=== PATIENT | male | born 1940 | race African-American/Black ===

== ENCOUNTER 2018-05-01 11:14 | Inpatient (IN) | payer OTHER ==
[~2018-05-01] VITALS: Ht 170.2 cm; Wt 68.5 kg
[2018-05-01] MEDS ORDERED: ASPIRIN 81MG TABLET PO ONE (12:15)
[2018-05-01] MEDS ORDERED: DILTIAZEM HCL 5MG/ML 5ML VIAL IV ONE (12:15)
[2018-05-01 12:44] LABS: HEMATOCRIT. 45.6 % (42.0-52.0); HEMOGLOBIN. 15.3 g/dL (14.0-18.0); MEAN CORPUSCULAR HEMOGLOBIN 29.4 pg (28.0-32.0); MEAN CORPUSCULAR VOLUME 87.6 fL (80.0-94.0); RED CELL DISTRIBUTION WIDTH 14.5 % (11.6-14.6)
[2018-05-01 12:50] LABS: CHLORIDE 107 mEq/L (98-107)
[2018-05-01] MEDS ORDERED: SODIUM CHLORIDE 0.9% 500 ML IV ONE (13:00)
[2018-05-01 13:26] LABS: MEAN PLATELET VOLUME 9.8 fl (7.4-10.4)
[2018-05-01 13:27] LABS: PLATELET 17 x1000/uL (130-400); PLATELET ESTIMATE MARKEDLY DECREASED
[2018-05-01] MEDS ORDERED: DILTIAZEM HCL 125 MG in DEXT 5% WATER 100 ML IV ONE (13:30)
[2018-05-01] MEDS ORDERED: DILTIAZEM HCL 125 MG in DEXT 5% WATER 100 ML IV SCH (14:15)
[2018-05-01] MEDS ORDERED: HYDROCODONE/ACETAMINOPHEN 5/325MG TABLET PO PRN (17:45)
[2018-05-01] MEDS ORDERED: ONDANSETRON HCL 4MG/2ML INJ IV PRN (17:45)
[2018-05-01] MEDS ORDERED: ENOXAPARIN 40MG/0.4ML SYR SUBCUT SCH (17:45)
[2018-05-01] MEDS ORDERED: ACETAMINOPHEN 325MG TABLET PO PRN (17:45)
[2018-05-01] MEDS ORDERED: LORAZEPAM 2MG/ML CPJ IV PRN (17:45)
[2018-05-01 18:46] LABS: CLARITY URINE CLOUDY (CLEAR); COLOR URINE YELLOW (YELLOW); KETONES URINE NEGATIVE (NEGATIVE); LEUKOCYTE ESTERASE URINE TRACE (NEGATIVE); NITRITE URINE NEGATIVE (NEGATIVE); OCCULT BLOOD URINE 2+ (NEGATIVE); PROTEIN URINE 1+ (NEGATIVE); SPECIFIC GRAVITY URINE 1.018 (1.005-1.030)
[2018-05-01 19:09] LABS: *AMPHETAMINES SCREEN URINE NEGATIVE (NEGATIVE); *BARBITURATES SCREEN URINE NEGATIVE (NEGATIVE); *BENZODIAZEPINES SCREEN URINE NEGATIVE (NEGATIVE); *COCAINE SCREEN URINE NEGATIVE (NEGATIVE)
[2018-05-01 19:10] LABS: CANNABINOID URINE SCREEN NEGATIVE (NEGATIVE); METHADONE URINE SCREEN NEGATIVE (NEGATIVE); OPIATES URINE SCREEN NEGATIVE (NEGATIVE); PHENCYCLIDINE URINE SCREEN NEGATIVE (NEGATIVE)
[2018-05-01 21:07] LABS: BG BASE EXCESS -2.1 mmol/L (-2.0-2.0); BG BILEVEL POS AIRWAY PRESSURE 15/5; BG CARBOXYHEMOGLOBIN 0.3 % (0.5-1.5); BG DEOXYHEMOGLOBIN 0.7 % (0.0-5.0); BG FRACTION INSPIRED OXYGEN 100; BG HCO3 ACT 19.3 mmol/L (22.0-26.0); BG METHEMOGLOBIN 0.4 % (0.0-1.5); BG OXYGEN SATURATION 99.3 % (92.0-98.5); BG OXYHEMOGLOBIN 98.6 % (94.0-97.0); BG PCO2 25.3 mmHg (35.0-45.0); BG PH 7.501 (7.350-7.450); BG SAMPLE SITE RIGHT RADIAL; BG TOTAL HEMOGLOBIN 14.1 g/dL (12.0-18.0); BG VENT MODE MASK - BIPAP; BG VENT RATE 18 set
[2018-05-01] MEDS: SODIUM CHLORIDE 0.9% 1,000 ML IV SCH (23:00)
[2018-05-01] MEDS: THIAMINE HCL 100MG TABLET PO SCH (23:00)
[2018-05-02] VITALS (30 sets, daily range): BP systolic 78–134; BP diastolic 39–79
[2018-05-02] MEDS: SODIUM CHLORIDE 0.9% 1,000 ML IV SCH ×2 (08:46→18:06)
[2018-05-02] MEDS: THIAMINE HCL 100MG TABLET PO SCH (08:47)
[2018-05-02] MEDS: FOLIC ACID 1MG TABLET PO SCH (08:47)
[2018-05-02] MEDS ORDERED: DILTIAZEM HCL 5MG/ML 5ML VIAL IV ONE (12:20)
[2018-05-02] MEDS ORDERED: AMIODARONE HCL 900 MG in DEXT 5% WATER 482 ML IV SCH (12:30)
[2018-05-02] MEDS ORDERED: AMIODARONE HCL 150 MG in DEXT 5% WATER 100 ML IV SCH (12:30)
[2018-05-02] MEDS ORDERED: IPRATROPIUM BROMIDE (0.02%) 0.5MG/2.5ML NEB HHN NR (12:45)
[2018-05-02] MEDS ORDERED: IPRATROPIUM BROMIDE (0.02%) 0.5MG/2.5ML NEB HHN PRN (13:15)
[2018-05-02 13:58] LABS: BG BASE EXCESS -3.6 mmol/L (-2.0-2.0); BG CARBOXYHEMOGLOBIN 0.7 % (0.5-1.5); BG DEOXYHEMOGLOBIN 3.4 % (0.0-5.0); BG FRACTION INSPIRED OXYGEN 28; BG HCO3 ACT 16.9 mmol/L (22.0-26.0); BG METHEMOGLOBIN 0.5 % (0.0-1.5); BG OXYGEN SATURATION 96.6 % (92.0-98.5); BG OXYHEMOGLOBIN 95.4 % (94.0-97.0); BG PCO2 20.9 mmHg (35.0-45.0); BG PH 7.526 (7.350-7.450); BG PO2 81.4 mmHg (75.0-100.0); BG SAMPLE SITE RIGHT RADIAL; BG TOTAL HEMOGLOBIN 13.6 g/dL (12.0-18.0); BG VENT MODE NASAL CANNULA
[2018-05-02] MEDS ORDERED: SODIUM CHLORIDE 0.9% 500 ML IV ONE (14:30)
[2018-05-02 15:39] LABS: HEMATOCRIT. 36.9 % (42.0-52.0); HEMOGLOBIN. 12.3 g/dL (14.0-18.0); MEAN CORPUSCULAR HEMOGLOBIN 29.4 pg (28.0-32.0); MEAN CORPUSCULAR VOLUME 87.8 fL (80.0-94.0); MEAN PLATELET VOLUME 9.5 fl (7.4-10.4); RED CELL DISTRIBUTION WIDTH 14.4 % (11.6-14.6)
[2018-05-02 15:41] LABS: CHLORIDE 109 mEq/L (98-107)
[2018-05-02 15:43] LABS: PLATELET 13 x1000/uL (130-400)
[2018-05-02] MEDS: IPRATROPIUM BROMIDE (0.02%) 0.5MG/2.5ML NEB HHN SCH ×2 (15:46→20:16)
[2018-05-02 15:47] LABS: INR 1.3; PHOSPHORUS 1.9 mg/dL (2.5-4.9); PROTHROMBIN TIME 13.2 sec (9.1-11.1)
[2018-05-02 15:52] LABS: CREATINE KINASE MB FRACTION 1.1 ng/mL (0.5-3.6)
[2018-05-02] MEDS ORDERED: DIATR MEGLU/DIATRIZOATE SOLN 30ML PO NR (16:00)
[2018-05-02] MEDS ORDERED: LEVOFLOXACIN 500MG PREMIX 100 ML IV SCH (16:00)
[2018-05-02 16:13] LABS: PLATELET ESTIMATE MARKEDLY DECREASED
[2018-05-02] MEDS ORDERED: VANCOMYCIN 1500MG in DEXTROSE 5% WATER 250ML IV NR (17:00)
[2018-05-02] MEDS ORDERED: POTASSIUM PHOS,M-BASIC-D-BASIC 30 MMOL in DEXT 5% WATER 500 ML IV NR (18:00)
[2018-05-02] MEDS: MEROPENEM 500 MG in SODIUM CHLORIDE 0.9% 50 ML IV SCH (20:42)
[2018-05-02] MEDS ORDERED: METRONIDAZOLE 500 MG PREMIX 100 ML IV SCH ×4 (22:00)
[2018-05-03] VITALS (24 sets, daily range): BP systolic 102–145; BP diastolic 62–96
[2018-05-03] MEDS: IPRATROPIUM BROMIDE (0.02%) 0.5MG/2.5ML NEB HHN SCH ×5 (00:19→16:55)
[2018-05-03 05:28] LABS: HEMATOCRIT. 36.3 % (42.0-52.0); HEMOGLOBIN. 12.2 g/dL (14.0-18.0); MEAN CORPUSCULAR HEMOGLOBIN 29.2 pg (28.0-32.0); MEAN CORPUSCULAR VOLUME 86.6 fL (80.0-94.0); MEAN PLATELET VOLUME 8.2 fl (7.4-10.4); RED BLOOD CELL COUNT 4.19 mill/uL (4.7-6.1); RED CELL DISTRIBUTION WIDTH 14.5 % (11.6-14.6)
[2018-05-03] MEDS: FOLIC ACID 1MG TABLET PO SCH (08:20)
[2018-05-03] MEDS: THIAMINE HCL 100MG TABLET PO SCH (08:20)
[2018-05-03] MEDS: MEROPENEM 500 MG in SODIUM CHLORIDE 0.9% 50 ML IV SCH (08:20)
[2018-05-03] MEDS: SODIUM CHLORIDE 0.9% 1,000 ML IV SCH ×2 (08:27→15:45)
[2018-05-03] MEDS: DILTIAZEM HCL 30MG TABLET PO SCH ×2 (11:54→17:58)
[2018-05-03] MEDS ORDERED: KCL 20MEQ/100ML PREMIX 100 ML IV NR (12:00)
[2018-05-03 13:06] LABS: A/G RATIO 0.7 (0.7-1.7); ALBUMIN 2.4 g/dL (2.9-4.4); ALPHA-1-GLOBULIN 0.4 g/dL (0.0-0.4); ALPHA-2-GLOBULIN 0.8 g/dL (0.4-1.0); BETA GLOBULIN 0.9 g/dL (0.7-1.3); GAMMA GLOBULINS 1.5 g/dL (0.4-1.8); GLOBULIN TOTAL 3.6 g/dL (2.2-3.9); M-SPIKE Not Observed g/dL (Not Observed)
[2018-05-03 15:10] LABS: ALBUMIN URINE 22.5 % (.); ALPHA-1-GLOBULIN URINE 1.7 % (.); ALPHA-2-GLOBULIN URINE 12.9 % (.); BETA GLOBULIN URINE 30.1 % (.); GAMMA GLOBULIN URINE 32.8 % (.); TOTAL PROTEIN RANDOM URINE 44.7 mg/dL (Not Estab.)
[2018-05-03 20:28] LABS: PLATELET ESTIMATE MARKEDLY DECREASED
[2018-05-03 20:29] LABS: PLATELET 49 x1000/uL (130-400)
[2018-05-07 04:11] LABS: DRVVT LA 46.5 sec (0.0-47.0); LUPUS ANTICOAG INTERPRETATION Comment: (.); PTT-LA 38.3 sec (0.0-51.9)
== END 2018-05-03 19:30 | disposition short-term general hospital (02) | DRG 871 ==
LOC: ER 11:14 → EDBEDREQ 12:07 → 5EST 15:23 → EDBEDREQ 15:27 → EDBEDREQSVC 15:29 → ENRESERV 20:15 → CVICU 05-02 13:30
PROVIDERS: ADMIT Internal Medicine Nephrology; ATTEND Internal Medicine Nephrology
PROC: 5A09357 Assistance with Respiratory Ventilation, Less than 24 Consecutive Hours, Continuous Positive Airway Pressure (ICD-10-PCS; 2018-05-01)
PROC: 30233R1 Transfusion of Nonautologous Platelets into Peripheral Vein, Percutaneous Approach (ICD-10-PCS; principal; 2018-05-03)
DX: A41.51 Sepsis due to Escherichia coli [E. coli] (principal); R65.21 Severe sepsis with septic shock; J96.00 Acute respiratory failure, unspecified whether with hypoxia or hypercapnia; E43 Unspecified severe protein-calorie malnutrition; N17.9 Acute kidney failure, unspecified; E87.2 Acidosis; I47.1 Supraventricular tachycardia; D69.3 Immune thrombocytopenic purpura; N13.6 Pyonephrosis; I69.351 Hemiplegia and hemiparesis following cerebral infarction affecting right dominant side; I48.0 Paroxysmal atrial fibrillation; N18.9 Chronic kidney disease, unspecified; E87.6 Hypokalemia; J44.9 Chronic obstructive pulmonary disease, unspecified; E83.39 Other disorders of phosphorus metabolism; E83.42 Hypomagnesemia; E86.1 Hypovolemia; I12.9 Hypertensive chronic kidney disease with stage 1 through stage 4 chronic kidney disease, or unspecified chronic kidney disease; Z87.891 Personal history of nicotine dependence; Z68.23 Body mass index [BMI] 23.0-23.9, adult
CPT/HCPCS: 36415; 36600; 71045; 74176; 76700; 76770; 78580; 80048; 80305; 82140; 82375; 82553; 82805; 83605; 83735; 83880; 84100; 84155; 84156; 84165; 84166; 84443; 84484; 84520; 85049; 85384; 85613; 85732; 86038; 86850; 86900; 87077; 87186; 93005; 93306; 94660; 96361; 96365; 96375; 99291; J0282; J1956; J2185; J2405; J3370; J3480; J3490; J7040; J7050; J7060; P9034; Q9963; A4315

== ENCOUNTER 2019-02-01 11:48 | Emergency (ER) | payer OTHER ==
[~2019-02-01] VITALS: Ht 170.2 cm; Wt 73.0 kg
[2019-02-01 12:35] LABS: BASOPHILS % 0.8 % (0.0-2.0); EOSINOPHILS % 0.8 % (0.0-5.0); HEMATOCRIT. 42.7 % (42.0-52.0); HEMOGLOBIN. 14.6 g/dL (14.0-18.0); LYMPHOCYTES % 18.4 % (20.0-50.0); MEAN CORPUSCULAR HEMOGLOBIN 30.2 pg (28.0-32.0); MEAN CORPUSCULAR VOLUME 88.4 fL (80.0-94.0); MEAN PLATELET VOLUME 7.5 fl (7.4-10.4); MONOCYTES % 6.5 % (2.0-8.0); NEUTROPHILS % 73.5 % (40.0-76.0); PLATELET 225 x1000/uL (130-400); RED BLOOD CELL COUNT 4.83 mill/uL (4.7-6.1)
[2019-02-01 12:39] LABS: CHLORIDE 105 mEq/L (98-107)
[2019-02-01 12:45] LABS: INR 1.2; PROTHROMBIN TIME 12.7 sec (9.6-11.0)
[2019-02-01] MEDS ORDERED: SODIUM CHLORIDE 0.9% 1,000 ML IV ONE (13:17)
[2019-02-01 14:49] LABS: CLARITY URINE CLEAR (CLEAR); COLOR URINE DARK YELLOW (YELLOW); KETONES URINE TRACE (NEGATIVE); LEUKOCYTE ESTERASE URINE TRACE (NEGATIVE); NITRITE URINE NEGATIVE (NEGATIVE); OCCULT BLOOD URINE TRACE (NEGATIVE); PROTEIN URINE 2+ (NEGATIVE)
[2019-02-01 20:05] VITALS: BP 145/88
== END 2019-02-01 20:53 | disposition short-term general hospital (02) ==
LOC: ER 12:02 → CANBEDREQ 22:32
DX: R53.1 Weakness (principal); I10 Essential (primary) hypertension; I69.351 Hemiplegia and hemiparesis following cerebral infarction affecting right dominant side
CPT/HCPCS: 36415; 70450; 71045; 80053; 80320; 81003; 83605; 84145; 84484; 85025; 85610; 87040; 87086; 93005; 96360; 96361; 99285; J7030; G0480

== ENCOUNTER 2019-06-13 14:35 | Emergency (ER) | payer OTHER ==
[~2019-06-13] VITALS: Ht 172.7 cm; Wt 71.0 kg
[2019-06-13] MEDS ORDERED: ASPIRIN 81MG TABLET PO ONE (17:00)
[2019-06-13 18:00] LABS: BASOPHILS % 0.9 % (0.0-2.0); EOSINOPHILS % 1.9 % (0.0-5.0); HEMATOCRIT. 39.2 % (42.0-52.0); HEMOGLOBIN. 13.5 g/dL (14.0-18.0); LYMPHOCYTES % 21.7 % (20.0-50.0); MEAN PLATELET VOLUME 7.9 fl (7.4-10.4); MONOCYTES % 7.9 % (2.0-8.0); NEUTROPHILS % 67.6 % (40.0-76.0); PLATELET 239 x1000/uL (130-400); RED CELL DISTRIBUTION WIDTH 13.4 % (11.6-14.6)
[2019-06-13 18:04] LABS: CHLORIDE 108 mEq/L (98-107)
[2019-06-13] MEDS ORDERED: NITROGLYCERIN 0.4MG TABLET SL SL ONE (19:30)
[2019-06-13 21:01] VITALS: BP 137/93
== END 2019-06-13 22:17 | disposition short-term general hospital (02) ==
LOC: ER 14:35
DX: I20.0 Unstable angina (principal); I10 Essential (primary) hypertension; M79.89 Other specified soft tissue disorders; R06.09 Other forms of dyspnea; D64.9 Anemia, unspecified; Z86.73 Personal history of transient ischemic attack (TIA), and cerebral infarction without residual deficits
CPT/HCPCS: 36415; 71045; 80053; 83880; 84484; 85025; 93005; 99285